=== PATIENT | female | born 1980 | race Caucasian/White ===

== ENCOUNTER 2016-12-11 15:36 | Emergency (ER) | payer MEDICAID ==
[~2016-12-11] VITALS: Ht 167.6 cm; Wt 73.5 kg
[~2016-12-11 15:36] MED LIST: NOHOMEMEDICATIONS
[2016-12-11 15:39] VITALS: BP 140/98
[2016-12-11] MEDS ORDERED: MOBIC15 MG PO (18:29)
== END 2016-12-11 18:30 | disposition home or self-care (01) ==
LOC: ER 15:36
DX: S02.2XXA Fracture of nasal bones, initial encounter for closed fracture (principal); S09.90XA Unspecified injury of head, initial encounter; F10.99 Alcohol use, unspecified with unspecified alcohol-induced disorder; W10.9XXA Fall (on) (from) unspecified stairs and steps, initial encounter; Y93.89 Activity, other specified; Y92.89 Other specified places as the place of occurrence of the external cause; Y99.8 Other external cause status

== ENCOUNTER 2017-02-18 11:16 | Emergency (ER) | payer MEDICAID ==
[~2017-02-18] VITALS: Ht 170.2 cm; Wt 68.5 kg
[~2017-02-18 11:16] MED LIST changes: +MOBIC15 MG PO
[2017-02-18] MEDS ORDERED: SENNA-DOCUSATE1 EACH PO (13:57)
[2017-02-18] MEDS ORDERED: NORCO 5-325 TA1 EACH PO (13:57)
[2017-02-18 14:53] VITALS: BP 140/86
== END 2017-02-18 14:54 | disposition home or self-care (01) ==
LOC: ER 11:16
DX: S92.901A Unspecified fracture of right foot, initial encounter for closed fracture (principal); S82.891A Other fracture of right lower leg, initial encounter for closed fracture; F10.99 Alcohol use, unspecified with unspecified alcohol-induced disorder; Z90.89 Acquired absence of other organs; W17.89XA Other fall from one level to another, initial encounter; Y93.I9 Activity, other involving external motion; Y92.89 Other specified places as the place of occurrence of the external cause; Y99.8 Other external cause status